=== PATIENT | male | born 1960 | race Caucasian/White ===

== ENCOUNTER 2024-09-20 19:12 | Emergency (ER) | payer BC, OTHER ==
[2024-09-20 19:44] LABS: #Basophils 0.06 10x3/uL (0.0-0.2); #Eosinophils 0.42 10x3/uL (0.0-0.5); #Monocytes 0.63 10x3/uL (0.0-1.1); #Neutrophils 4.96 10x3/uL (1.5-8.4); %Basophils 0.8 % (0.0-2.0); %Eosinophils 5.6 % (0.0-6.0); %Lymphocytes 19.3 % (18.0-47.0); %Monocytes 8.3 % (0.0-10.0); %Neutrophils 65.7 % (40.0-75.0); Hematocrit 39.5 % (38.8-50.0); Hemoglobin 13.7 g/dL (13.5-17.5); Mean Corpuscular HGB CONC 34.7 g/dL (32.0-36.0); Mean Corpuscular Hemoglobin 30.1 pg (27.0-33.0); Mean Corpuscular Volume 86.8 fL (81.2-95.1); Mean Platelet Volume 10.3 fL (7.4-10.4); Platelet Count 169 10x3/uL (150-450); Red Blood Cell (RBC) Count 4.55 10x6/uL (4.32-5.72); White Blood Cell (WBC) Count 7.55 10x3/uL (3.5-10.5)
[2024-09-20] MEDS ORDERED: Aspirin Chewable 81 MG TAB ONE (19:58)
[2024-09-20 20:08] LABS: ALT (SGPT) 33 U/L (Less than 45); AST (SGOT) 33 U/L (11-34); Albumin 4.1 g/dL (3.1-4.5); Alkaline Phosphatase 109 U/L (40-110); Anion Gap 13 mmol/L (10-20); BUN (Urea Nitrogen) 20 mg/dL (8.4-25.7); Calc. Creatinine Clearance 0 mL/min (70-130); Calcium 9.2 mg/dL (7.8-10.44); Carbon Dioxide 22 mmol/L (23-31); Chloride 106 mmol/L (98-107); Estimated GFR 93; Globulin 3.4 g/dL (2.4-3.5); Glucose 118 mg/dL (80-115); Protein, Total 7.5 g/dL (5.8-8.1); Sodium 137 mmol/L (136-145)
[2024-09-20 20:15] LABS: Troponin I Less than 0.010 ng/mL (< 0.028)
[2024-09-20 21:06] LABS: Troponin I Less than 0.010 ng/mL (< 0.028)
[2024-09-20 22:00] LABS: Troponin I Less than 0.010 ng/mL (< 0.028)
== END 2024-09-20 22:16 | disposition home or self-care (01) ==
LOC: CSHERS 19:12
DX: R07.89 Other chest pain (principal); I10 Essential (primary) hypertension; I25.2 Old myocardial infarction; Z55.6 Problems related to health literacy; Z79.82 Long term (current) use of aspirin
CPT/HCPCS: 36415; 71045; 80053; 83880; 84484; 85025; 93005; 94760